=== PATIENT | female | born 1995 | race Caucasian/White ===

== ENCOUNTER 2016-09-21 15:57 | Emergency (ER) | payer OTHER ==
[~2016-09-21] VITALS: Ht 162.6 cm; Wt 90.0 kg
[2016-09-21 16:08] VITALS: BP 122/72; PULSE 58; RESP 16; TEMP 98.3; O2SAT 100
[2016-09-21 16:56] LABS: BLOOD, URINE SMALL (NEG); GLUCOSE,URINE NEG (NEG); KETONE, URINE NEG (NEG); NITRITE,URINE NEG (NEG)
[2016-09-21 17:06] LABS: METHOD OF COLLECTION CLEAN CATCH; URINE COLOR YELLOW (YELLW/STRAW)
[2016-09-21 17:08] LABS: HYALINE CAST, URINE 0-2 /lpf (RARE); MUCUS URINE RARE /lpf (OCC)
[2016-09-21 17:10] LABS: BACTERIA, URINE FEW /hpf; COMMENT (UR) CULT NOT INDICATED; CULTURE IF INDICATED CULT NOT INDICATED
[2016-09-21] MEDS ORDERED: KETOROLAC TROMETHAMINE 30 MG/ML (IVP) VIAL IV PUSH ONE (18:15)
[2016-09-21] MEDS ORDERED: SODIUM CHLOR 0.9% 1000 ML INJ 1,000 ML IV ONE (18:15)
--- NOTE | 2016-09-21 18:17 | PD ---
HPI Chief Complaint: Flank/Kidney Pain Time Seen by Provider: 18:11 Travel History International Travel<30 days: No Contact w/Intl Traveler<30days: No Traveled to known affect area: No History of Present Illness HPI Patient is a 20-year-old female presenting to emergency for evaluation of right flank pain that radiates to the right lower abdomen. Patient states it started last night but got progressively worse today. Patient was recently diagnosed with kidney stones a few weeks ago while in [place]. She's never had issues before. The symptoms she has today are consistent with the symptoms she had at that time. Patient reports feeling nauseated, she's had urinary frequency for the last few days so much so that she's been waking up in the middle night to urinate. This is also new for her. When patient was evaluated in [place] they did not perform a CT scan of her abdomen and pelvis, she states it didn't ultrasound. Her past medical history includes asthma. They she states the pain is a 5 out of 10 currently. PFSH Past Medical History Asthma: Yes Kidney Stones: Yes Tetanus Vaccination: > 5 Years Influenza Vaccination: No ?: Not Past Surgical History Ear Surgery: Yes Tonsillectomy: Yes Other Surgery: Yes (breast reduction) Social History Alcohol Use: Yes Tobacco Use: Yes Substance Use: No Allergies-Medications (Allergen,Severity, Reaction): Coded Allergies: No Known Allergies (Unverified , 09/21/16) Reported Meds & Prescriptions Reported Meds & Active Scripts Active No Active Prescriptions or Reported Medications Review of Systems Except as stated in HPI: all other systems reviewed are Neg Gastrointestinal: Positive: Nausea, Abdominal Pain Genitourinary: Positive: Frequency, Pelvic Pain, Flank Pain Physical Exam Narrative GENERAL: Developed, well nourished, alert female. Resting comfortably in no acute distress. SKIN: Warm and dry. HEAD: Atraumatic. Normocephalic. EYES: Pupils equal and round. No scleral icterus. No injection or drainage. ENT: No nasal bleeding or discharge. Mucous membranes pink and moist. NECK: Trachea midline. No JVD. CARDIOVASCULAR: Regular rate and rhythm. RESPIRATORY: No accessory muscle use. Clear to auscultation. Breath sounds equal bilaterally. GASTROINTESTINAL: Abdomen soft, mildly tender to palpation in right lower quadrant, nondistended. Hepatic and splenic margins not palpable. No rebound, no guarding. MUSCULOSKELETAL: Extremities without clubbing, cyanosis, or edema. No obvious deformities. CVAT on the right NEUROLOGICAL: Awake and alert. No obvious cranial nerve deficits. Motor grossly within normal limits. Five out of 5 muscle strength in the arms and legs. Normal speech. PSYCHIATRIC: Appropriate mood and affect; insight and judgment normal. Data Data Last Documented VS Vital Signs Date Time Temp Pulse Resp B/P Pulse Ox O2 Delivery O2 Flow Rate FiO2 09/21/16 16:08 98.3 58 16 122/72 100 Orders Urinalysis - C+S If Indicated (09/21/16 16:16) Ct Abd/Pel W/O Iv Contrast (09/21/16 ) Ed Urine Pregnancytest Poc (09/21/16 18:06) Basic Metabolic Panel (Bmp) (09/21/16 18:06) Complete Blood Count With Diff (09/21/16 18:06) Sodium Chlor 0.9% 1000 Ml Inj (Ns 1000 M (09/21/16 18:15) Ketorolac Inj (Toradol Inj) (09/21/16 18:15) Labs Laboratory Tests Test 09/21/16 09/21/16 16:44 18:20 Urine Collection Type CLEAN CATCH Urine Color YELLOW Urine Turbidity CLEAR Urine pH 6.0 Urine Specific [place] 1.024 Urine Protein NEG mg/dL Urine Glucose (UA) NEG mg/dL Urine Ketones NEG mg/dL Urine Occult Blood SMALL Urine Nitrite NEG Urine Bilirubin NEG Urine Leukocyte Esterase NEG Urine RBC 10-14 /hpf Urine WBC 3-5 /hpf Urine Squamous Epithelial 6-8 /hpf Cells Urine Bacteria FEW /hpf Urine Hyaline Casts 0-2 /lpf Urine Mucus RARE /lpf Microscopic Urinalysis Comment CULT NOT INDICATED White Blood Count 12.1 TH/MM3 Red Blood Count 4.46 MIL/MM3 Hemoglobin 13.6 GM/DL Hematocrit 38.9 % Mean Corpuscular Volume 87.3 FL Mean Corpuscular Hemoglobin 30.6 PG Mean Corpuscular Hemoglobin 35.0 % Concent Red Cell Distribution Width 11.7 % Platelet Count 330 TH/MM3 Mean Platelet Volume 7.9 FL Neutrophils (%) (Auto) 62.5 % Lymphocytes (%) (Auto) 27.5 % Monocytes (%) (Auto) 7.2 % Eosinophils (%) (Auto) 2.1 % Basophils (%) (Auto) 0.7 % Neutrophils # (Auto) 7.5 TH/MM3 Lymphocytes # (Auto) 3.3 TH/MM3 Monocytes # (Auto) 0.9 TH/MM3 Eosinophils # (Auto) 0.3 TH/MM3 Basophils # (Auto) 0.1 TH/MM3 CBC Comment DIFF FINAL Differential Comment Sodium Level 140 MEQ/L Potassium Level 3.7 MEQ/L Chloride Level 105 MEQ/L Carbon Dioxide Level 26.9 MEQ/L Anion Gap 8 MEQ/L Blood Urea Nitrogen 19 MG/DL Creatinine 0.75 MG/DL Estimat Glomerular Filtration 100 ML/MIN Rate Random Glucose 84 MG/DL Calcium Level 9.3 MG/DL MDM Medical Decision Making Medical Screen Exam Complete: Yes Emergency Medical Condition: Yes Interpretation(s) Laboratory Tests Test 09/21/16 09/21/16 16:44 18:20 Urine Collection Type CLEAN CATCH Urine Color YELLOW Urine Turbidity CLEAR Urine pH 6.0 Urine Specific [place] 1.024 Urine Protein NEG mg/dL Urine Glucose (UA) NEG mg/dL Urine Ketones NEG mg/dL Urine Occult Blood SMALL Urine Nitrite NEG Urine Bilirubin NEG Urine Leukocyte Esterase NEG Urine RBC 10-14 /hpf Urine WBC 3-5 /hpf Urine Squamous Epithelial 6-8 /hpf Cells Urine Bacteria FEW /hpf Urine Hyaline Casts 0-2 /lpf Urine Mucus RARE /lpf Microscopic Urinalysis Comment CULT NOT INDICATED White Blood Count 12.1 TH/MM3 Red Blood Count 4.46 MIL/MM3 Hemoglobin 13.6 GM/DL Hematocrit 38.9 % Mean Corpuscular Volume 87.3 FL Mean Corpuscular Hemoglobin 30.6 PG Mean Corpuscular Hemoglobin 35.0 % Concent Red Cell Distribution Width 11.7 % Platelet Count 330 TH/MM3 Mean Platelet Volume 7.9 FL Neutrophils (%) (Auto) 62.5 % Lymphocytes (%) (Auto) 27.5 % Monocytes (%) (Auto) 7.2 % Eosinophils (%) (Auto) 2.1 % Basophils (%) (Auto) 0.7 % Neutrophils # (Auto) 7.5 TH/MM3 Lymphocytes # (Auto) 3.3 TH/MM3 Monocytes # (Auto) 0.9 TH/MM3 Eosinophils # (Auto) 0.3 TH/MM3 Basophils # (Auto) 0.1 TH/MM3 CBC Comment DIFF FINAL Differential Comment Sodium Level 140 MEQ/L Potassium Level 3.7 MEQ/L Chloride Level 105 MEQ/L Carbon Dioxide Level 26.9 MEQ/L Anion Gap 8 MEQ/L Blood Urea Nitrogen 19 MG/DL Creatinine 0.75 MG/DL Estimat Glomerular Filtration 100 ML/MIN Rate Random Glucose 84 MG/DL Calcium Level 9.3 MG/DL Last Impressions Abdomen/Pelvis CT 09/21/16 0000 Signed Impressions: Service Date/Time: Wednesday, September 21, 2016 18:48 - CONCLUSION: 3 mm right ureterovesical junction stone causing mild obstructive uropathy. I cannot clearly see the stone on the initial laborer cheesemaking radiograph. There is a 1 x 3 mm nonobstructing stone of the left kidney. Robert Bruner MD Vital Signs Date Time Temp Pulse Resp B/P Pulse Ox O2 Delivery O2 Flow Rate FiO2 09/21/16 16:08 98.3 58 16 122/72 100 Differential Diagnosis UTI versus appendicitis versus renal calculi versus strain versus spasm versus other Narrative Course Patient is a 20-year-old female presenting to emergency for evaluation of right flank and right lower quadrant abdominal pain. Patient has a history of kidney stones per her report she states that an ultrasound was performed with a could not discern where the stone was in her ureter. Patient of Zofran prior to arrival due to her complaint of nausea. Labs, imaging, IV fluids ordered. She is resting comfortably in no acute distress. Her vital signs are stable. Urinalysis is positive hematuria CBC with a mildly elevated white count at 12. Chemistry was unremarkable CT scan abdomen and pelvis revealed a 3 mm renal calculi at the right UVJ causing mild obstructive uropathy, there is a 1 X 3 mm nonobstructing stone of the left kidney. Patient will be placed on Flomax, she is given oral pain medications. She is encouraged to maintain adequate fluid intake. She is encouraged to strain her urine. She was encouraged to follow-up with her primary care provider. Initially patient was advised to return to emergency department for any new or worsening symptoms. Patient verbalized understanding of these instructions. Patient is stable for discharge. Diagnosis Primary Impression: Bilateral kidney stones Referrals: Primary Care Physician Patient Instructions: General Instructions, Kidney Stones (ED) Additional Instructions: Follow-up with her primary doctor Strain all urine Do not drive or operate machinery while taking her chronic pain medication Return to emergency department for any new or worsening symptoms Med/Other Pt SpecificInfo: Prescription(s) given Scripts Tamsulosin 0.4 Mg Cap0.4 Mg PO HS 10 Days Ref 0 Prov:Daija Cabello 09/21/16 Ketorolac 10 Mg Tab10 Mg PO Q6HR PRN (PAIN) 7 Days Ref 0 Prov:Daija Cabello 09/21/16 Oxycodone-Acetaminophen (Percocet)5-325 mg Tab1 Tab PO Q4H PRN (PAIN) #15 TAB Ref 0 Prov:Golden Banuelos MD 09/21/16 Disposition: 01 DISCHARGE HOME Condition: Stable Daija Cabello Sep 21, 2016 18:17
[2016-09-21 18:30] LABS: AUTOMATED NEUTROPHIL # 7.5 TH/MM3 (1.8-7.7); BASOPHIL # 0.1 TH/MM3 (0-0.2); BASOPHIL % 0.7 % (0.0-2.0); EOSINOPHIL # 0.3 TH/MM3 (0-0.4); EOSINOPHIL % 2.1 % (0.0-4.0); HEMATOCRIT 38.9 % (35.0-46.0); HEMO FLAGS DIFF FINAL; LYMPH % 27.5 % (9.0-44.0); LYMPHOCYTE # 3.3 TH/MM3 (1.0-4.8); MEAN CELL VOLUME 87.3 FL (80.0-100.0); MEAN CORPUSCULAR HEMOGLOBIN 30.6 PG (27.0-34.0); MONO % 7.2 % (0.0-8.0); NEUT % 62.5 % (16.0-70.0); PLATELET COUNT 330 TH/MM3 (150-450); RED BLOOD COUNT 4.46 MIL/MM3 (4.00-5.30); RED CELL DISTRIBUTION WIDTH 11.7 % (11.6-17.2); WHITE BLOOD COUNT 12.1 TH/MM3 (4.0-11.0)
[2016-09-21 18:53] LABS: POTASSIUM 3.7 MEQ/L (3.5-5.1)
[2016-09-21 18:56] LABS: BICARBONATE 26.9 MEQ/L (21.0-32.0)
--- NOTE | 2016-09-21 19:27 | RADHPO ---
EXAM DATE/TIME: 09/21/2016 18:48 [facility] COMPARISON: No previous studies available for comparison. INDICATIONS : Right sided flank pain. ORAL CONTRAST: No oral contrast ingested. RADIATION DOSE: 23.4 CTDIvol (mGy) MEDICAL HISTORY : Renal calculi. SURGICAL HISTORY : None. ENCOUNTER: Initial ACUITY: 1 day PAIN SCALE: 8/10 LOCATION: Right flank TECHNIQUE: Volumetric scanning of the abdomen and pelvis was performed. Using automated exposure control and ad justment of the mA and/or kV according to patient size, radiation dose was kept as low as reasonably achievable to obtain optimal diagnostic quality images. FINDINGS: LOWER LUNGS: The visualized lower lungs are clear. LIVER: Homogeneous density without lesion. There is no dilation of the biliary tree. No calcified gallston es. SPLEEN: Normal size without lesion. PANCREAS: Within normal limits. KIDNEYS: There is a 3 mm stone at the right ureterovesical junction causing mild hydronephrosis and hydrourete r. There is a 1 x 3 mm nonobstructing stone of the left lower pole ADRENAL GLANDS: Within normal limits. VASCULAR: There is no aortic aneurysm. BOWEL/MESENTERY: The stomach, small bowel, and colon demonstrate no acute abnormality. There is no free intraperitone al air or fluid. ABDOMINAL WALL: Within normal limits. RETROPERITONEUM: There is no lymphadenopathy. BLADDER: No wall thickening or mass. REPRODUCTIVE: Within normal limits. INGUINAL: There is no lymphadenopathy or hernia. MUSCULOSKELETAL: No acute bony abnormality demonstrated. CONCLUSION: 3 mm right ureterovesical junction stone causing mild obstructive uropathy. I cannot clearly see the stone on the initial hand ii tube bender radiograph. There is a 1 x 3 mm nonobstructing stone of the left kidney. Robert Bruner MD on September 21, 2016 at 19:24 Board Certified Radiologist. This report was verified electronically.
[2016-09-21] MEDS ORDERED: PERC5TAB12 PO (19:38)
[2016-09-21] MEDS ORDERED: KETO10 PO (19:44)
[2016-09-21] MEDS ORDERED: TAMS0.4C4 PO (19:44)
[2016-09-21 19:50] VITALS: BP 122/74
== END 2016-09-21 19:54 | disposition home or self-care (01) ==
LOC: PHED 15:57 → PHEFT 19:54
DX: N20.0 Calculus of kidney (principal)
CPT/HCPCS: 74176; 80048; 81001; 84703; 85025; 96361; 96374; 99284; J1885; J7030

== ENCOUNTER 2016-10-04 23:56 | Emergency (ER) | payer OTHER ==
[~2016-10-04] VITALS: Ht 162.6 cm; Wt 90.0 kg
[~2016-10-04 23:56] MED LIST: KETO10 PO; PERC5TAB12 PO; TAMS0.4C4 PO
[2016-10-05] VITALS: BP 119/76; PULSE 78; RESP 18; TEMP 97.9; O2SAT 97
[2016-10-05 00:13] VITALS: BP 119/76; PULSE 78; RESP 18; TEMP 97.9; O2SAT 97
[2016-10-05] MEDS ORDERED: SODIUM CHLOR 0.9% 1000 ML INJ 1,000 ML IV ONE (00:16)
[2016-10-05] MEDS ORDERED: ZOFR4TAB PO (00:18)
[2016-10-05] MEDS ORDERED: VENTAER INH (00:19)
--- NOTE | 2016-10-05 00:22 | PD ---
HPI Chief Complaint: Flank/Kidney Pain Time Seen by Provider: 00:18 Travel History International Travel<30 days: No Contact w/Intl Traveler<30days: No Traveled to known affect area: No History of Present Illness HPI 20 year-old female presents to the emergency department by private transportation for complaint of right flank pain radiating to the right lower quadrant since this evening. Patient reports that 2 weeks ago she was diagnosed with bilateral kidney stones and a proximal right-sided kidney stone 3 mm in size of she was told may pass in a few days. Patient's had intermittent discomfort but this has been persistent and not responsive to a single dose of Zofran this evening and oxycodone this evening. Patient rates pain as moderate to severe. No prior history of kidney stones. Patient denies dysuria frequency urgency or hematuria. Patient denies . Last menstrual period was September 06. Patient also has history of asthma without recent exacerbation. Patient's had nausea without vomiting. PFSH Past Medical History Narrative Medical Asthma kidney stones tonsillectomy ear surgery tobacco use alcohol use nursing as reviewed Asthma: Yes Kidney Stones: Yes Respiratory: Yes ?: Not LMP: Aug Past Surgical History Ear Surgery: Yes Tonsillectomy: Yes Other Surgery: Yes (breast reduction) Social History Alcohol Use: Yes Tobacco Use: Yes Substance Use: No Allergies-Medications (Allergen,Severity, Reaction): Coded Allergies: No Known Allergies (Unverified , 09/21/16) Reported Meds & Prescriptions Reported Meds & Active Scripts Active Percocet (Oxycodone-Acetaminophen) 5-325 mg Tab 1 Tab PO Q4H PRN Reported Ventolin Hfa 18 GM Inh (Albuterol Sulfate) 90 Mcg/Act Aer 2 Puff INH Q4-6H PRN Zofran (Ondansetron HCl) 4 Mg Tab 4 Mg PO Q6HR PRN Review of Systems Except as stated in HPI: all other systems reviewed are Neg General / Constitutional: No: Fever, Chills HENT: No: Congestion Cardiovascular: Positive: Diaphoresis, No: Chest Pain or Discomfort Respiratory: No: Shortness of Breath Gastrointestinal: Positive: Nausea, Abdominal Pain (right lower quadrant), No : Vomiting, Diarrhea Genitourinary: Positive: Flank Pain, No: Dysuria (right-sided) Musculoskeletal: No: Myalgias, Arthralgias Skin: No Rash Neurologic: No: Weakness Psychiatric: No: Anxiety Endocrine: No: Heat Intolerance Hematologic/Lymphatic: No: Easy Bruising Physical Exam Narrative GENERAL: Well-developed well-nourished female in no acute distress no respiratory distress SKIN: Warm and dry. HEAD: Normocephalic. EYES: No scleral icterus. No injection or drainage. NECK: Supple, trachea midline. No JVD or lymphadenopathy. CARDIOVASCULAR: Regular rate and rhythm without murmurs, gallops, or rubs. RESPIRATORY: Breath sounds equal bilaterally. No accessory muscle use. GASTROINTESTINAL: Abdomen soft, non-tender, nondistended. MUSCULOSKELETAL: No cyanosis, or edema. BACK: Nontender without obvious deformity. No CVA tenderness. Data Data Last Documented VS Vital Signs Date Time Temp Pulse Resp B/P Pulse Ox O2 Delivery O2 Flow Rate FiO2 10/05/16 02:31 18 10/05/16 02:20 73 10/05/16 02:20 113/60 99 Room Air 10/05/16 00:13 97.9 Orders Complete Blood Count With Diff (10/05/16 00:16) Basic Metabolic Panel (Bmp) (10/05/16 00:16) Urinalysis - C+S If Indicated (10/05/16 00:16) Ed Urine Pregnancytest Poc (10/05/16 00:16) Ecg Monitoring (10/05/16 00:16) Iv Access Insert/Monitor (10/05/16 00:16) Ketorolac Inj (Toradol Inj) (10/05/16 00:30) Ondansetron Inj (Zofran Inj) (10/05/16 00:30) Sodium Chloride 0.9% Flush (Ns Flush) (10/05/16 00:30) Sodium Chlor 0.9% 1000 Ml Inj (Ns 1000 M (10/05/16 00:16) Morphine Inj (Morphine Inj) (10/05/16 02:15) Labs Laboratory Tests Test 10/05/16 10/05/16 00:25 00:30 Urine Collection Type VOIDED Urine Color YELLOW Urine Turbidity SLIGHT Urine pH 6.0 Urine Specific [place] 1.020 Urine Protein NEG mg/dL Urine Glucose (UA) NEG mg/dL Urine Ketones NEG mg/dL Urine Occult Blood TRACE Urine Nitrite NEG Urine Bilirubin NEG Urine Leukocyte Esterase NEG Urine WBC 3-5 /hpf Urine Squamous Epithelial >8 /hpf Cells Urine Calcium Oxalate Crystals FEW /hpf Urine Bacteria FEW /hpf Urine Mucus FEW /lpf Urine Oval Fat Bodies Microscopic Urinalysis Comment CULT NOT INDICATED White Blood Count 11.1 TH/MM3 Red Blood Count 4.72 MIL/MM3 Hemoglobin 14.0 GM/DL Hematocrit 41.1 % Mean Corpuscular Volume 87.1 FL Mean Corpuscular Hemoglobin 29.6 PG Mean Corpuscular Hemoglobin 34.0 % Concent Red Cell Distribution Width 12.1 % Platelet Count 341 TH/MM3 Mean Platelet Volume 7.9 FL Neutrophils (%) (Auto) 55.8 % Lymphocytes (%) (Auto) 32.0 % Monocytes (%) (Auto) 7.7 % Eosinophils (%) (Auto) 2.8 % Basophils (%) (Auto) 1.7 % Neutrophils # (Auto) 6.1 TH/MM3 Lymphocytes # (Auto) 3.6 TH/MM3 Monocytes # (Auto) 0.9 TH/MM3 Eosinophils # (Auto) 0.3 TH/MM3 Basophils # (Auto) 0.2 TH/MM3 CBC Comment DIFF FINAL Differential Comment Sodium Level 140 MEQ/L Potassium Level 4.0 MEQ/L Chloride Level 108 MEQ/L Carbon Dioxide Level 24.0 MEQ/L Anion Gap 8 MEQ/L Blood Urea Nitrogen 19 MG/DL Creatinine 1.10 MG/DL Estimat Glomerular Filtration 64 ML/MIN Rate Random Glucose 92 MG/DL Calcium Level 8.9 MG/DL MDM Medical Decision Making Medical Screen Exam Complete: Yes Emergency Medical Condition: Yes Medical Record Reviewed: Yes Interpretation(s) UA: blood culture not indicated Vital Signs Date Time Temp Pulse Resp B/P Pulse Ox O2 Delivery O2 Flow Rate FiO2 10/05/16 02:31 18 10/05/16 02:20 73 18 10/05/16 02:20 73 18 113/60 99 Room Air 10/05/16 01:29 66 18 116/56 99 Room Air 10/05/16 01:21 18 10/05/16 00:20 78 18 10/05/16 00:13 97.9 78 18 119/76 97 10/05/16 00:00 97.9 78 18 119/76 97 CBC & BMP Diagram 10/05/16 00:30 Vital Signs Date Time Temp Pulse Resp B/P Pulse Ox O2 Delivery O2 Flow Rate FiO2 10/05/16 02:31 18 10/05/16 02:20 73 18 10/05/16 02:20 73 18 113/60 99 Room Air 10/05/16 01:29 66 18 116/56 99 Room Air 10/05/16 01:21 18 10/05/16 00:20 78 18 10/05/16 00:13 97.9 78 18 119/76 97 10/05/16 00:00 97.9 78 18 119/76 97 Differential Diagnosis Flank pain, renal colic, obstructive uropathy, pyelonephritis, , appendicitis, biliary colic Narrative Course IV access obtained specimens collected and sent for resulting patient administered Zofran 4 mg IV and after [id number] hCG negative Toradol 30 mg IV as well as bolus normal saline Patient continues to have pain administered morphine 4 mg IV Lab values resulted and found to be grossly within normal range except for renal insufficiency creatinine 1.1 with BUN of 19; small blood noted on urinalysis and calcium oxalate crystals present culture is not indicated; point -of-care hCG negative Patient defers/declines repeat CAT scan at this time patient encouraged to follow-up with urologist and primary care provider; patient provided a refill of pain medication and encouraged to defer use of ibuprofen at this time due to renal function Diagnosis Primary Impression: Renal colic on right side Additional Impression: Mild renal insufficiency Referrals: Primary Care Physician call for appointment Urologist call for appointment brake operator helper urologist--Dr Lazo Patient Instructions: General Instructions Departure Forms: Tests/Procedures, Work Release Special Instructions: no work x 1 day Additional Instructions: Increase fluid hydration Follow-up with primary care provider Follow-up with urologist--- on-call urologist is Dr. Lazo Return to the emergency department for fever pain vomiting or any concerns Strain urine No work times one day May use acetaminophen/Tylenol every 4 hours as needed for fever 100.4F or greater or for minor pain Take pain medication as prescribed as needed Take medication for nausea vomiting as prescribed as needed Med/Other Pt SpecificInfo: Prescription(s) given Scripts Ondansetron Odt (Zofran Odt)4 Mg Tab4 Mg SL Q6HR PRN (Nausea/Vomiting) #10 TAB Ref 0 Prov:Enriqueta Moreno MD 10/05/16 Oxycodone-Acetaminophen (Percocet)5-325 mg Tab1 Tab PO Q6H PRN (PAIN) #12 TAB Ref 0 Prov:Enriqueta Moreno MD 10/05/16 Disposition: 01 DISCHARGE HOME Condition: Stable Enriqueta Moreno MD Oct 05, 2016 00:22
[2016-10-05] MEDS ORDERED: ONDANSETRON HCL 4 MG/2 ML VIAL IVP ONE (00:30)
[2016-10-05] MEDS ORDERED: SODIUM CHLORIDE 0.9% FLUSH 5 ML FLUSH IVF PRN (00:30)
[2016-10-05] MEDS ORDERED: KETOROLAC TROMETHAMINE 30 MG/ML (IVP) VIAL IVP ONE (00:30)
[2016-10-05 00:50] LABS: AUTOMATED NEUTROPHIL # 6.1 TH/MM3 (1.8-7.7); BASOPHIL # 0.2 TH/MM3 (0-0.2); BASOPHIL % 1.7 % (0.0-2.0); EOSINOPHIL # 0.3 TH/MM3 (0-0.4); EOSINOPHIL % 2.8 % (0.0-4.0); HEMATOCRIT 41.1 % (35.0-46.0); LYMPHOCYTE # 3.6 TH/MM3 (1.0-4.8); MEAN CELL VOLUME 87.1 FL (80.0-100.0); MEAN CORPUSCULAR HEMOGLOBIN 29.6 PG (27.0-34.0); MONO % 7.7 % (0.0-8.0); NEUT % 55.8 % (16.0-70.0); PLATELET COUNT 341 TH/MM3 (150-450); RED BLOOD COUNT 4.72 MIL/MM3 (4.00-5.30); RED CELL DISTRIBUTION WIDTH 12.1 % (11.6-17.2); WHITE BLOOD COUNT 11.1 TH/MM3 (4.0-11.0)
[2016-10-05 00:52] LABS: BLOOD, URINE TRACE (NEG); GLUCOSE,URINE NEG (NEG); KETONE, URINE NEG (NEG); NITRITE,URINE NEG (NEG)
[2016-10-05 00:54] LABS: HEMO FLAGS DIFF FINAL
[2016-10-05 01:00] LABS: METHOD OF COLLECTION VOIDED; URINE COLOR YELLOW (YELLW/STRAW)
[2016-10-05 01:04] LABS: BACTERIA, URINE FEW /hpf; CALCIUM OXALATE CRYSTALS,URINE FEW /hpf; MUCUS URINE FEW /lpf (OCC); SQUAMOUS EPITHELIAL CELL URINE >8 /hpf (0-5)
[2016-10-05 01:05] LABS: COMMENT (UR) CULT NOT INDICATED; CULTURE IF INDICATED CULT NOT INDICATED
[2016-10-05 01:29] VITALS: BP 116/56; PULSE 66; RESP 18; O2SAT 99
[2016-10-05] MEDS ORDERED: MORPHINE SULFATE 4 MG/ML INJ IV PUSH ONE (02:15)
[2016-10-05 02:20] VITALS: BP 113/60; PULSE 73; RESP 18; O2SAT 99
[2016-10-05 02:31] VITALS: RESP 18
[2016-10-05] MEDS ORDERED: PERC5TAB12 PO (02:39)
[2016-10-05] MEDS ORDERED: ZOFR4TAB3 SL (02:39)
== END 2016-10-05 03:01 | disposition home or self-care (01) ==
LOC: PHED 23:56
DX: N23 Unspecified renal colic (principal); N28.9 Disorder of kidney and ureter, unspecified; R11.0 Nausea; Z72.0 Tobacco use; Z87.09 Personal history of other diseases of the respiratory system
CPT/HCPCS: 80048; 81001; 84703; 85025; 96361; 96374; 96375; 99284; J1885; J2270; J2405; J7030

== ENCOUNTER 2016-10-05 12:05 | Emergency (ER) | payer OTHER ==
[~2016-10-05] VITALS: Ht 162.6 cm; Wt 90.0 kg
[~2016-10-05 12:05] MED LIST changes: +VENTAER INH; +ZOFR4TAB PO; +ZOFR4TAB3 SL
[2016-10-05 12:07] VITALS: BP 122/86; PULSE 88; RESP 16; TEMP 98; O2SAT 98
--- NOTE | 2016-10-05 12:44 | PD ---
HPI Chief Complaint: Flank/Kidney Pain Time Seen by Provider: 12:29 Travel History International Travel<30 days: No Contact w/Intl Traveler<30days: No Traveled to known affect area: No History of Present Illness HPI Is a 20-year-old female presents emergency department for evaluation of right flank pain. Patient was at [place] emergency department late last night and was seen by Dr. Moreno. She had lab works which showed that her creatinine was 1.1, urine was not infected. Patient had CT scan in the middle of August showing that she had two kidney stones largest is 3 mm which is at the UVJ on the right. Patient was given narcotics and Zofran last night was feeling better and went home. She states when she got home she started becoming very nauseated and this morning she decided to come back in emerged Department for another evaluation. Patient has been referred to urologist and has not yet followed up. Patient states that she was unaware that she needed to. Currently she states she is pain free and only has some mild nausea. PFSH Past Medical History Asthma: Yes Diminished Hearing: No Kidney Stones: Yes Respiratory: Yes Immunizations Current: Yes Influenza Vaccination: Yes ?: Not LMP: 09/06/16 Past Surgical History Ear Surgery: Yes Tonsillectomy: Yes Other Surgery: Yes (breast reduction) Social History Alcohol Use: No Tobacco Use: No Substance Use: No Allergies-Medications (Allergen,Severity, Reaction): Coded Allergies: No Known Allergies (Unverified , 10/05/16) Reported Meds & Prescriptions Reported Meds & Active Scripts Active Zofran Odt (Ondansetron Odt) 4 Mg Tab 4 Mg SL Q6HR PRN Percocet (Oxycodone-Acetaminophen) 5-325 mg Tab 1 Tab PO Q6H PRN Percocet (Oxycodone-Acetaminophen) 5-325 mg Tab 1 Tab PO Q4H PRN Reported Ventolin Hfa 18 GM Inh (Albuterol Sulfate) 90 Mcg/Act Aer 2 Puff INH Q4-6H PRN Zofran (Ondansetron HCl) 4 Mg Tab 4 Mg PO Q6HR PRN Review of Systems Except as stated in HPI: all other systems reviewed are Neg Physical Exam Narrative GENERAL: Well-developed well-nourished no apparent distress SKIN: Warm and dry. HEAD: Atraumatic. Normocephalic. EYES: Pupils equal and round. No scleral icterus. No injection or drainage. ENT: No nasal bleeding or discharge. Mucous membranes pink and moist. NECK: Trachea midline. No JVD. CARDIOVASCULAR: Regular rate and rhythm. No murmur appreciated. RESPIRATORY: No accessory muscle use. Clear to auscultation. Breath sounds equal bilaterally. GASTROINTESTINAL: Abdomen soft, non-tender, nondistended. Hepatic and splenic margins not palpable. No CVA tenderness MUSCULOSKELETAL: No obvious deformities. No clubbing. No cyanosis. No edema. NEUROLOGICAL: Awake and alert. No obvious cranial nerve deficits. Motor grossly within normal limits. Normal speech. PSYCHIATRIC: Appropriate mood and affect; insight and judgment normal. Data Data Last Documented VS Vital Signs Date Time Temp Pulse Resp B/P Pulse Ox O2 Delivery O2 Flow Rate FiO2 10/05/16 12:07 98.0 88 16 122/86 98 Orders Ondansetron Odt (Zofran Odt) (10/05/16 12:45) MDM Medical Decision Making Medical Screen Exam Complete: Yes Emergency Medical Condition: Yes Differential Diagnosis Kidney stone, renal colic, UTI, cystitis, . Narrative Course Review of the patient's CT scan from September 21 shows a 3 mm right ureterovesicular junction stone causing mild obstructive uropathy. There is a 1 x 3 mm nonobstructing stone in the left kidney. Review of her labs from just after midnight(approximately 12 hours ago) show white count of 11.1 with normal differential, H&H within normal limits, chemistry shows a creatinine 1.10 B1 of 19 lecture lites within normal limits, UA shows trace occult blood no convincing evidence of infection. Urine test was negative yesterday. At this point the patient has been less than 12 hours since her last evaluation. She does need to follow up with urology. Patient was offered CAT scan but at this time she appears well and in no apparent distress and I don't think it would change her plan. She was offered pain medicine emerged permit is not having pain and therefore declined. She was prescribed Zofran as well as narcotics yesterday. Discussed with her and her uncle to follow-up with urology and they're agreeable. Diagnosis Primary Impression: Renal colic on right side Referrals: Horacio Lazo MD Med/Other Pt SpecificInfo: Prescription(s) given Disposition: 01 DISCHARGE HOME Condition: Stable Odell Delacruz MD Oct 05, 2016 12:44
[2016-10-05] MEDS ORDERED: ONDANSETRON ODT 4 MG TAB PO ONE (12:45)
== END 2016-10-05 13:00 | disposition home or self-care (01) ==
LOC: NEPB 12:05
DX: N23 Unspecified renal colic (principal); J45.909 Unspecified asthma, uncomplicated; Z87.442 Personal history of urinary calculi
CPT/HCPCS: 99283